=== PATIENT | male | born 1980 | race Caucasian/White ===

== ENCOUNTER 2024-08-11 14:13 | Inpatient (IN) ==
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
[2024-08-11 14:54] LABS: Appearance Urine Clear (Clear); Bilirubin Urine Negative (Negative); Blood Urine Negative (Negative); Color Urine Yellow; Glucose Urine UA Negative (Negative); Ketones Urine Negative (Negative); Leukocyte Esterase Urine Negative (Negative); Nitrite Urine Negative (Negative); Protein Urine Negative (Negative); Specific Gravity Urine 1.013 (1.000-1.030); Urobilinogen Urine Negative (Negative)
[2024-08-11] MEDS: LORazepam 1 MG TAB SL STA (15:18)
[2024-08-11] MEDS: NICOTINE 21 MG/24 HR TDSY TD STA (15:18)
[2024-08-11 15:21] LABS: Basophils # (auto) 0.03 K/uL (0.00-0.20); Basophils % (auto) 0.2 %; Eosinophils # (auto) 0.01 K/uL (0.00-0.50); Eosinophils % (auto) 0.1 %; Hematocrit (blood only) 42.3 % (42.0-52.0); Hemoglobin 14.8 g/dl (14.0-18.0); Immature Granulocytes # (auto) 0.04 K/uL (0.01-0.20); Immature Granulocytes % (auto) 0.3 %; Lymphocytes # (auto) 0.76 K/uL (1.20-3.40); Lymphocytes % (auto) 5.6 %; Mean Corpuscular Hemoglobin 30.6 pg (25.0-34.0); Mean Corpuscular Volume 87.6 fL (80.0-100.0); Mean Platelet Volume 9.5 fL (9.4-12.4); Monocytes # (auto) 0.77 K/uL (0.11-0.59); Monocytes % (auto) 5.7 %; Neutrophils # (auto) 11.92 K/uL (1.40-6.50); Neutrophils % (auto) 88.1 %; Platelet Count 220 K/uL (130-400); RDW Coefficient of Variation 12.1 % (11.5-14.5); RDW Standard Deviation 38.8 fL (36.4-46.3); Red Blood Count 4.83 M/uL (4.70-6.10); White Blood Count 13.53 K/ul (4.8-10.8)
[2024-08-11 15:25] LABS: Amphetamines+Metham, Urine Neg (Neg); Barbiturates, Urine Neg (Neg); Benzodiazepine, Urine Neg (Neg); Cocaine, Urine Neg (Neg); Fentanyl, Urine Neg (Neg); MDMA (Ecstacy), Urine Pos (Neg); Marijuana, Urine Neg (Neg); Methadone, Urine Neg (Neg); Opiate, Urine Neg (Neg); Phencyclidine, Urine Neg (Neg)
[2024-08-11 15:38] LABS: Alanine Aminotransferase 67 U/L (7-52); Albumin Globulin Ratio 1.3 (0.9-2); Albumin Level 4.7 gm/dl (3.4-5.0); Alkaline Phosphatase 62 U/L (34-104); Anion Gap 9 (3-11); Aspartate Aminotransferase 35 U/L (13-39); BUN Creatinine Ratio 15.7 (10-20); Bilirubin,Total 0.4 mg/dl (0.2-1.0); Blood Urea Nitrogen 17 mg/dl (6-23); Calcium 10.1 mg/dl (8.6-10.3); Carbon Dioxide 26 mmol/L (21-32); Chloride 101 mmol/L (98-107); Globulin 3.6 gm/dl (2.5-4.0); Glucose 94 mg/dl (70-99(Fasting)); Potassium 4.6 mmol/L (3.5-5.1); Sodium 136 mmol/L (136-145); Total Protein 8.3 gm/dl (6.0-8.3)
[2024-08-11 15:40] LABS: Acetaminophen < 3 ug/ml (10-30); Salicylate < 3.0 mg/dl (3.0-30)
[2024-08-11 15:51] LABS: Thyroid Stimulating Hormone 1.885 uIu/ml (0.300-4.500)
[2024-08-11] MEDS: BUPRENORPHINE/NALOXONE 2/0.5MG TAB SL STA (18:52)
--- NOTE | 2024-08-11 20:51 | Emergency Department Note ---
ED Visit Note The patient was taken in signout from Dr. Yee at the change of shift. Please see that note for details. The patient was pending voluntary mental health bed search for paranoia. Patient was medically cleared. Patient was accepted to [facility] .
[2024-08-11] MEDS ORDERED: MAGNESIUM HYDROXIDE SUSP 30 ML UDC PO PRN (22:21)
[2024-08-11] MEDS ORDERED: SODIUM CHLORIDE 0.65% NA SOLN 45 ML (OCEAN) PRN (22:21)
[2024-08-11] MEDS ORDERED: BISMUTH SUBSALICYLATE 262 MG CHEW PO PRN (22:21)
[2024-08-11] MEDS ORDERED: ALUMINUM/MAGNESIUM SUSP 30 ML UDC PO PRN (22:21)
[2024-08-11] MEDS ORDERED: hydrOXYzine HCl 25 MG TAB PO PRN (22:21)
[2024-08-11] MEDS ORDERED: ACETAMINOPHEN 325 MG TAB PO PRN (22:21)
[2024-08-11] MEDS: OLANZapine 10 MG TAB PO STA (22:47)
[2024-08-12] MEDS: hydrOXYzine HCl 25 MG TAB PO PRN (00:39)
[2024-08-12] MEDS: OLANZapine 5 MG TABLET PO PRN (00:39)
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
[2024-08-12] MEDS: NICOTINE 21 MG/24 HR TDSY TD SCH (10:00)
[2024-08-12] MEDS ORDERED: QUEtiapine FUMARATE 25 MG TABLET PO PRN (10:41)
[2024-08-12] MEDS: QUEtiapine FUMARATE 25 MG TABLET PO SCH (12:00)
[2024-08-12] MEDS: GABAPENTIN 300 MG CAP PO SCH (13:02)
[2024-08-12] MEDS: buprenorphine HCL 2 MG SUBL SL SCH ×2 (15:48→17:13)
[2024-08-12] MEDS: QUEtiapine FUMARATE 300 MG TABLET PO SCH (21:04)
[2024-08-12] MEDS: OLANZapine 10 MG TAB PO SCH (21:04)
[2024-08-12] MEDS: PRAZOSIN HCL 1 MG CAP PO SCH (21:04)
--- NOTE | 2024-08-13 09:01 | Psychiatric Progress Note ---
Date of Service August 13, 2024 Impression / Recommendations Impression BONILLA NORRIS is a 43-year-old man who has recently been transient, has a history of schizophrenia vs schizoaffective disorder, polysubstance use disorder on suboxone MAT, ADHD, PTSD, and was admitted on 08/11/24 20:56 on a 201 voluntary commitment for psychosis after eloping from local substance use treatment facility with psychosis and passive SI. Diagnostically consistent with unspecified psychosis with differential including schizophrenia vs schizoaffective disorder in addition to periods of exacerbation from substance use. Also meets criteria for polysubstance use disorder. Unfortunately he has very poor insight and judgement about his paranoid delusions which seems to be leading to a chronic pattern of constantly moving between hospitals and substance use treatment centers trying to find a place where he feels safe and not targeted. It seems that after a few days at most places his paranoia starts to increase and he then insists on moving to a new place. Given he reports medication adherence and multiple prior antipsychotic medication trials an MCCANN or clozapine trial would be ideal but he declines both of these options. And I agree with him that clozapine would be difficult to remain on until he is willing to at least settle in one place long enough to establish with an outpatient provider for blood monitoring. A: Significant lessening of paranoia, delusions and psychosis today which suggests likely significant contribution from substance use. More substance seeking behaviors seen today, he is quite focused on wanting to restart Wellbutrin and adjust timing of suboxone. Reviewed rationale for reducing dose of Suboxone for now with BID dosing and for discontinuation of Wellbutrin. Tolerating medications without side effects. Motivated for residential substance use treatment. MNPR-recent psychosis with paranoia Overall, I spent a total of 30 minutes on this case including meeting with the patient, reviewing the chart, nursing report, multidisciplinary team meeting, orders, and documentation. (1) Schizophrenia, paranoid, chronic with acute exacerbation: (2) Polysubstance use disorder: (3) Opioid use disorder: Plan 08/13/2024: -Adjust timing of suboxone to BID at 7-14 -Discontinue Seroquel qAM, continue HS and prn doses -Labwork ordered for tomorrow AM 08/12/2024: The patient was admitted to the [facility] ([facility] mental health unit) on q15 min checks (behavioral with suicide precautions) for safety. The patient will participate in group, recreational, and milieu therapies and will be offered additional individual and family sessions as clinically appropriate. -Medications: * Continue prior to admission Suboxone but reduce dose from 2mg TID to 2mg BID SL * Continue prazosin 1mg HS * Stop Wellbutrin XL * Continue gabapentin 300mg TID * Start Seroquel 50mg qAM and 300mg HS as well as 50mg TID prn for psychosis/paranoia -Labwork: * Fasting lipid panel * HbA1c * Vit D * Vit B12 Inventory Assets Strengths: good relationship with his mother, wants treatment Needs: safety and stabilization, medication adjustment, additional coping skills, increased outpatient services Suicide Risk Level Suicide Risk Level: Low (q15 min observation checks) (denying SI and psychosis improved, feels safe in the hospital and feels able to ask for support) Risk Factors Assessment Male: Yes : Yes Do You Have Access To A Gun?: No Health Problems: No Mental Health Diagnoses: Yes Substance Use Disorders: Yes Previous Attempt: Yes Family History of Suicide: No Previous Psychiatric Hospitalization: Yes Hopelessness: No Protective Factors Assessment Employed: No Stable Relationships: Yes (with his mother) Interval History Identifying Information BONILLA NORRIS is a 43-year-old man who has recently been transient, has a history of schizophrenia vs schizoaffective disorder, polysubstance use, ADHD, PTSD, and was admitted on 08/11/24 20:56 on a 201 voluntary commitment for psychosis after eloping from local substance use treatment facility with psychosis and passive SI. Chief Complaint "My joints are achy". Review of Systems Sleep Information Total Hours of Sleep: 6.30 Sleep Comments: Pt awake at 2300, ate and returned to bed and slept Meal Information Percent Meal Consumed - Breakfast: 100 Percent Meal Consumed - Lunch: 100 Percent Meal Consumed - Dinner: 100 Subjective Subjective Patient was seen & assessed and interval progress reviewed with treatment team nursing and social work. Out of his room in the evening, showered. Slept well overnight. Made some inappropriate comments about sperm being on the shower floor. Today denies symptoms of psychosis, significant lessening of paranoia. Participating well in unit activities. Focused on desire to restart Wellbutrin and adjust doing of suboxone. Reviewed that I am only comfortable with BID dosing and goal of utilizing slightly lower dose until he is further evaluated by substance use treatment facility which he is accepting of, he does request dose be given earlier in the day which is appropriate. He prefers not to have Seroquel in the morning, but liked having it at night. Reviewed rationale for not restarting Wellbutrin due to activation, potential to worsen psychosis and that this could be explored in the future. Offered option for Chantix which he declines. Denies SI. He's focused on goal of going to [facility] for substance use treatment. Physical Exam Psychiatric Orientation: alert and oriented x 3 Apperance: appropriately dressed and appropriately groomed Eye Contact: good eye contact Motor Behavior: no abnormal motor movements Speech: normal rate/rhythm/volume of speech Affect: + anxious affect Mood: + anxious mood Thought Process: goal directed thought process Thought Content: reality based without delusions Suicidal Thoughts: denies suicidal thoughts, denies suicidal plan and denies suicidal intent Homicidal Thoughts: denies homicidal thoughts and denies homicidal plan Hallucinations: no auditory hallucinations and no visual hallucinations Cognition: recent memory grossly intact, remote memory grossly intact, attention grossly intact and language grossly intact Insight: + limited insight Judgment: + fair judgement Vital Signs (Past 24 Hours) Last Vital Signs Temp 36.2 C L 08/13/24 06:41 Pulse 84 08/13/24 06:44 Resp 18 08/13/24 06:41 BP 91/60 L 08/13/24 06:44 Pulse Ox 96 08/13/24 06:41 O2 Del Method Room Air 08/13/24 06:41 Results & Data ([facility]) Current Inpatient Medications Current Inpatient Medications: Current Inpatient Medications Acetaminophen (Acetaminophen 325 Mg Tab) 650 mg PO Q4H PRN PRN Reason: Headache or Minor Fever Stop: 09/10/24 22:20 Al Hydrox/Mg Hydrox/Simethicone (Aluminum/Magnesium Susp 30 Ml Udc) 30 ml PO Q4H PRN PRN Reason: GI Upset Stop: 09/10/24 22:20 Bismuth Subsalicylate (Bismuth Subsalicylate 262 Mg Chew) 2 tab PO Q30M PRN PRN Reason: Loose Stool/Diarrhea Stop: 09/10/24 22:20 Buprenorphine HCl (Buprenorphine Hcl 2 Mg Subl) 2 mg SL BID [facility] Stop: 09/11/24 15:29 Last Admin: 08/12/24 21:04 Dose: 2 mg Gabapentin (Gabapentin 300 Mg Cap) 300 mg PO TID [facility] Stop: 09/11/24 13:59 Last Admin: 08/12/24 21:04 Dose: 300 mg Hydroxyzine HCl (Hydroxyzine Hcl 25 Mg Tab) 50 mg PO HSZ PRN PRN Reason: Insomnia Stop: 09/10/24 22:20 Last Admin: 08/12/24 02:55 Dose: 50 mg Hydroxyzine HCl (Hydroxyzine Hcl 25 Mg Tab) 25 mg PO Q4H PRN PRN Reason: Anxiety Stop: 09/10/24 22:20 Magnesium Hydroxide (Magnesium Hydroxide Susp 30 Ml Udc) 30 ml PO DAILY PRN PRN Reason: Constipation Stop: 09/10/24 22:20 Miscellaneous (Remove Nicoderm Patch) 1 each N/A DAILY@0859 [facility] Stop: 09/11/24 08:58 Last Admin: 08/12/24 10:00 Dose: Not Given Nicotine (Nicotine 21 Mg/24 Hr Tdsy) 1 patch TD QAM [facility] Stop: 09/11/24 08:59 Last Admin: 08/12/24 10:00 Dose: 1 patch Nicotine Polacrilex (Nicotine Polacrilex 2 Mg Gum) 2 piece MT PRN PRN PRN Reason: Nicotine Withdrawal Symptoms Stop: 09/10/24 22:20 Olanzapine (Olanzapine 5 Mg Tablet) 5 mg PO BID PRN PRN Reason: Agitation Stop: 09/11/24 08:59 Last Admin: 08/12/24 00:39 Dose: 5 mg Olanzapine (Olanzapine 10 Mg Tab) 10 mg PO HS [facility] Stop: 09/11/24 21:59 Last Admin: 08/12/24 21:04 Dose: 10 mg Prazosin HCl (Prazosin Hcl 1 Mg Cap) 1 mg PO HS [facility] Stop: 09/11/24 21:59 Last Admin: 08/12/24 21:04 Dose: 1 mg Quetiapine Fumarate (Quetiapine Fumarate 25 Mg Tablet) 50 mg PO QAM [facility] Stop: 09/11/24 10:44 Last Admin: 08/12/24 12:00 Dose: 50 mg Quetiapine Fumarate (Quetiapine Fumarate 300 Mg Tablet) 300 mg PO HS [facility] Stop: 09/11/24 21:59 Last Admin: 08/12/24 21:04 Dose: 300 mg Quetiapine Fumarate (Quetiapine Fumarate 25 Mg Tablet) 50 mg PO TID PRN PRN Reason: paranoia/psychosis Stop: 09/11/24 13:59 Sodium Chloride (Sodium Chloride 0.65% Na Soln 45 Ml ([place])) 1 - 2 sprays NA PRN PRN PRN Reason: Nasal Dryness/Congestion Stop: 09/10/24 22:20 Mental Health & Subst Abuse Tx Therapist Name of Therapist: none Carpenter Railcar Name of Carpenter Railcar: Venice Chavez @ [facility] Phone Number for Carpenter Railcar: [phone] Post Discharge Appointments Primary Care Physician Name Of Family Doctor/PCP: none Partial or Psych Rehab Name of Partial or Psych Rehab: [facility] Phone Number of Partial or Psych Rehab: [phone] Partial or Psych Rehab Appointment Comment: FAX [phone]
[2024-08-13] MEDS: NICOTINE POLACRILEX 2 MG GUM MT PRN (15:48)
[2024-08-13] MEDS: IBUPROFEN 600 MG TAB PO PRN (15:48)
[2024-08-13] MEDS: buprenorphine HCL 2 MG SUBL SL SCH (17:23)
--- NOTE | 2024-08-14 09:01 | Psychiatric Progress Note ---
Date of Service August 14, 2024 Impression / Recommendations Impression BONILLA NORRIS is a 43-year-old man who has recently been transient, has a history of schizophrenia vs schizoaffective disorder, polysubstance use disorder on suboxone MAT, ADHD, PTSD, and was admitted on 08/11/24 20:56 on a 201 voluntary commitment for psychosis after eloping from local substance use treatment facility with psychosis and passive SI. Diagnostically consistent with unspecified psychosis with differential including schizophrenia vs schizoaffective disorder in addition to periods of exacerbation from substance use. Also meets criteria for polysubstance use disorder. Unfortunately he has very poor insight and judgement about his paranoid delusions which seems to be leading to a chronic pattern of constantly moving between hospitals and substance use treatment centers trying to find a place where he feels safe and not targeted. It seems that after a few days at most places his paranoia starts to increase and he then insists on moving to a new place. Given he reports medication adherence and multiple prior antipsychotic medication trials an MCCANN or clozapine trial would be ideal but he declines both of these options. And I agree with him that clozapine would be difficult to remain on until he is willing to at least settle in one place long enough to establish with an outpatient provider for blood monitoring. A: No evidence for psychosis today, remains focused on adjusting medications which may be part of his substance use disorder but also focused on finding the right balance of medications to help his psychiatric symptoms. He continues to find Seroquel helpful. Will adjust Suboxone to once daily dosing, this is more in-line with standard prescribing recommendations for MAT. He requests and consents to starting escitalopram for history of depression, anxiety. Reviewed s luis antonio effects including but not limited to: GI, NOBLES, sexual side effects. Will restart prior to admission flomax for urinary retention. He's been accepted for residential substance use treatment at [facility], he needs to remain in the hospital until bed is available as he is at very high risk for relapse and worsening of acute psychosis outside of a secure/supervised setting. MNPR-recent psychosis with paranoia Overall, I spent a total of 35 minutes on this case including meeting with the patient, reviewing the chart, nursing report, multidisciplinary team meeting, orders, and documentation. (1) Schizophrenia, paranoid, chronic with acute exacerbation: (2) Polysubstance use disorder: (3) Opioid use disorder: Plan 08/14/2024: -Consolidate Suboxone to 4mg SL daily -Labwork reordered for tomorrow AM -Flomax started -Escitalopram 10mg daily starting tomorrow 08/13/2024: -Adjust timing of suboxone to BID at 7-14 -Discontinue Seroquel qAM, continue HS and prn doses -Labwork ordered for tomorrow AM 08/12/2024: The patient was admitted to the [facility] ([facility] health unit) on q15 min checks (behavioral with suicide precautions) for safety. The patient will participate in group, recreational, and milieu therapies and will be offered additional individual and family sessions as clinically appropriate. -Medications: * Continue prior to admission Suboxone but reduce dose from 2mg TID to 2mg BID SL * Continue prazosin 1mg HS * Stop Wellbutrin XL * Continue gabapentin 300mg TID * Start Seroquel 50mg qAM and 300mg HS as well as 50mg TID prn for psychosis/paranoia -Labwork: * Fasting lipid panel * HbA1c * Vit D * Vit B12 Inventory Assets Strengths: good relationship with his mother, wants treatment Needs: safety and stabilization, medication adjustment, additional coping skills, i ncreased outpatient services Suicide Risk Level Suicide Risk Level: Low (q15 min observation checks) (denying SI and psychosis improved, feels safe in the hospital and feels able to ask for support) Risk Factors Assessment Male: Yes : Yes Do You Have Access To A Gun?: No Health Problems: No Mental Health Diagnoses: Yes Substance Use Disorders: Yes Previous Attempt: Yes Family History of Suicide: No Previous Psychiatric Hospitalization: Yes Hopelessness: No Protective Factors Assessment Employed: No Stable Relationships: Yes (with his mother) Interval History Identifying Information BONILLA NORRIS is a 43-year-old man who has recently been transient, has a history of schizophrenia vs schizoaffective disorder, polysubstance use, ADHD, PTSD, and was admitted on 08/11/24 20:56 on a 201 voluntary commitment for psychosis after eloping from local substance use treatment facility with psychosis and passive SI. Chief Complaint "I woke up and couldn't remember where I was". Review of Systems Sleep Information Total Hours of Sleep: 4 Sleep Comments: HS medications and awake several times throughout the night. Meal Information Percent Meal Consumed - Breakfast: 100 Percent Meal Consumed - Lunch: 100 Percent Meal Consumed - Dinner: 100 Subjective Subjective Patient was seen & assessed and interval progress reviewed with treatment team nursing and social work. Eat overnight despite redirection so fasting labs rescheduled again. Awake overnight, only slept 4 hours. Increased paranoia about the lack of blinds in his room vs frustration with morning light so slept in the quiet room. Sometimes makes substance use references like asking for "a hit of that" when seeing a peer use saline nasal spray. Today reports feeling like he could sleep once in the quiet room, denies any paranoia related to this. Reviewed that he's been getting both Seroquel and olanzapine at which likely contributed to his sense of sedation this morning so he's agreeable with continuing with Seroquel monotherapy. He requests once daily dosing of Suboxone which I reviewed was reasonable and more in line with standard prescribing practices for opioid use disorder to help with his cravings. He would like to start an antidepressant and understands concerns related to Wellbutrin, he requests escitalopram. Also reports he's been having urinary retention in recent months, even prior to substance use relapse and was started on Flomax with good effect at [facility], requests this be restarted as he's noticed urinary difficulty feeling fully empted while here. Reviewed this can also be a side effect of antipsychotic medications. Physical Exam Psychiatric Orientation: alert and oriented x 3 Apperance: appropriately dressed and appropriately groomed Eye Contact: good eye contact Motor Behavior: no abnormal motor movements Speech: normal rate/rhythm/volume of speech Affect: euthymic affect Mood: + depressed mood; no anxious mood Thought Process: goal directed thought process Thought Content: reality based without delusions Suicidal Thoughts: denies suicidal thoughts, denies suicidal plan and denies suicidal intent Homicidal Thoughts: denies homicidal thoughts and denies homicidal plan Hallucinations: no auditory hallucinations and no visual hallucinations Cognition: recent memory grossly intact, remote memory grossly intact, attention grossly intact and language grossly intact Insight: + limited insight Judgment: + fair judgement Vital Signs (Past 24 Hours) Last Vital Signs Temp 36.2 C L 08/13/24 06:41 Pulse 98 H 08/14/24 06:41 Resp 16 08/14/24 06:41 BP 187/92 H 08/14/24 06:41 Pulse Ox 96 08/13/24 06:41 O2 Del Method Room Air 08/13/24 06:41 Results & Data ([facility]) Current Inpatient Medications Current Inpatient Medications: Current Inpatient Medications Acetaminophen (Acetaminophen 325 Mg Tab) 650 mg PO Q4H PRN PRN Reason: Headache or Minor Fever Stop: 09/10/24 22:20 Al Hydrox/Mg Hydrox/Simethicone (Aluminum/Magnesium Susp 30 Ml Udc) 30 ml PO Q4H PRN PRN Reason: GI Upset Stop: 09/10/24 22:20 Bismuth Subsalicylate (Bismuth Subsalicylate 262 Mg Chew) 2 tab PO Q30M PRN PRN Reason: Loose Stool/Diarrhea Stop: 09/10/24 22:20 Buprenorphine HCl (Buprenorphine Hcl 2 Mg Subl) 2 mg SL [id number] Stop: 09/12/24 16:44 Last Admin: 08/14/24 06:34 Dose: 2 mg Gabapentin (Gabapentin 300 Mg Cap) 300 mg PO TID [facility] Stop: 09/11/24 13:59 Last Admin: 08/13/24 20:59 Dose: 300 mg Hydroxyzine HCl (Hydroxyzine Hcl 25 Mg Tab) 50 mg PO HSZ PRN PRN Reason: Insomnia Stop: 09/10/24 22:20 Last Admin: 08/12/24 02:55 Dose: 50 mg Hydroxyzine HCl (Hydroxyzine Hcl 25 Mg Tab) 25 mg PO Q4H PRN PRN Reason: Anxiety Stop: 09/10/24 22:20 Ibuprofen (Ibuprofen 600 Mg Tab) 600 mg PO QID PRN PRN Reason: muscle/joint pain Stop: 09/12/24 16:59 Last Admin: 08/13/24 15:48 Dose: 600 mg Magnesium Hydroxide (Magnesium Hydroxide Susp 30 Ml Udc) 30 ml PO DAILY PRN PRN Reason: Constipation Stop: 09/10/24 22:20 Miscellaneous (Remove Nicoderm Patch) 1 each N/A DAILY@0859 [facility] Stop: 09/11/24 08:58 Last Admin: 08/13/24 09:45 Dose: 1 each Nicotine (Nicotine 21 Mg/24 Hr Tdsy) 1 patch TD QAM [facility] Stop: 09/11/24 08:59 Last Admin: 08/13/24 09:41 Dose: 1 patch Nicotine Polacrilex (Nicotine Polacrilex 2 Mg Gum) 2 piece MT PRN PRN PRN Reason: Nicotine Withdrawal Symptoms Stop: 09/10/24 22:20 Last Admin: 08/13/24 19:49 Dose: 2 piece Olanzapine (Olanzapine 5 Mg Tablet) 5 mg PO BID PRN PRN Reason: Agitation Stop: 09/11/24 08:59 Last Admin: 08/12/24 00:39 Dose: 5 mg Olanzapine (Olanzapine 10 Mg Tab) 10 mg PO HS [facility] Stop: 09/11/24 21:59 Last Admin: 08/13/24 20:59 Dose: 10 mg Prazosin HCl (Prazosin Hcl 1 Mg Cap) 1 mg PO HS [facility] Stop: 09/11/24 21:59 Last Admin: 08/13/24 20:59 Dose: 1 mg Quetiapine Fumarate (Quetiapine Fumarate 300 Mg Tablet) 300 mg PO HS [facility] Stop: 09/11/24 21:59 Last Admin: 08/13/24 20:59 Dose: 300 mg Quetiapine Fumarate (Quetiapine Fumarate 25 Mg Tablet) 50 mg PO TID PRN PRN Reason: paranoia/psychosis Stop: 09/11/24 13:59 Sodium Chloride (Sodium Chloride 0.65% Na Soln 45 Ml ([place])) 1 - 2 sprays NA PRN PRN PRN Reason: Nasal Dryness/Congestion Stop: 09/10/24 22:20 Mental Health & Subst Abuse Tx Therapist Name of Therapist: none Music Worker Name of Music Worker: Venice Chavez @ [facility] Phone Number for Music Worker: [phone] Post Discharge Appointments Primary Care Physician Name Of Family Doctor/PCP: none Partial or Psych Rehab Name of Partial or Psych Rehab: [facility] Phone Number of Partial or Psych Rehab: [phone] Partial or Psych Rehab Appointment Comment: FAX [phone]
[2024-08-15] MEDS: TAMSULOSIN HCL 0.4 MG CAP PO SCH (07:00)
[2024-08-15] MEDS: ESCITALOPRAM OXALATE 10 MG TAB PO SCH (07:00)
[2024-08-15] MEDS: buprenorphine HCL 2 MG SUBL SL SCH ×2 (07:01→16:00)
[2024-08-15 08:45] LABS: Estimated Average Glucose 108 mg/dl; Hemoglobin A1C 5.4 % (4.5-5.6)
[2024-08-15 08:53] LABS: Chol HDL Ratio 5.5 (0-5)
[2024-08-15] MEDS ORDERED: buprenorphine HCL 2 MG SUBL SL SCH (09:00)
[2024-08-15] MEDS: buPROPion XL 150 MG TABCR PO SCH (12:47)
--- NOTE | 2024-08-15 14:35 | Psychiatric Progress Note ---
Date of Service August 15, 2024 Impression / Recommendations Impression BONILLA NORRIS is a 43-year-old man who has recently been transient, has a history of schizophrenia vs schizoaffective disorder, polysubstance use disorder on suboxone MAT, ADHD, PTSD, and was admitted on 08/11/24 20:56 on a 201 voluntary commitment for psychosis after eloping from local substance use treatment facility with psychosis and passive SI. A: Concern patient has a delusional disorder as he presents non bizarre delusions which have been persistent for many years with limited improvement with treatment. Concern for an associated personality element due to extended [facility] sentence with hypervigilance. Concern for trauma related distressing dreams with anxiety however will not increase current prazosin dose due to patient's low blood pressure. Plan for discharge to rehab facility tomorrow AM. Labs reviewed: Triglycerides high at 277, Cholesterol of 204, Vit D Low at 23.7. MNPR-recent psychosis with paranoia Overall, I spent a total of 40 minutes on this case including meeting with the justina mosquera, reviewing the chart, nursing report, multidisciplinary team meeting, orders, and documentation. (1) Delusional disorder, persecutory type: (2) Polysubstance use disorder: (3) Opioid use disorder: Plan 08/15/2024: Restart Wellbutrin at 150 mg daily. Suboxone 3 mg twice daily. Vit D 5000 units daily. 08/14/2024: -Consolidate Suboxone to 4mg SL daily -Labwork reordered for tomorrow AM -Flomax started -Escitalopram 10mg daily starting tomorrow 08/13/2024: -Adjust timing of suboxone to BID at 7-14 -Discontinue Seroquel qAM, continue HS and prn doses -Labwork ordered for tomorrow AM 08/12/2024: The patient was admitted to the [facility] ([facility]) on q15 min checks (behavioral with suicide precautions) for safety. The patient will participate in group, recreational, and milieu therapies and will be offered additional individual and family sessions as clinically appropriate. -Medications: * Continue prior to admission Suboxone but reduce dose from 2mg TID to 2mg BID SL * Continue prazosin 1mg HS * Stop Wellbutrin XL * Continue gabapentin 300mg TID * Start Seroquel 50mg qAM and 300mg HS as well as 50mg TID prn for psychosis/paranoia -Labwork: * Fasting lipid panel * HbA1c * Vit D * Vit B12 Inventory Assets Strengths: good relationship with his mother, wants treatment Needs: safety and stabilization, medication adjustment, additional coping skills, increased outpatient services Suicide Risk Level Suicide Risk Level: Low (q15 min observation checks) (denying SI and psychosis improved, feels safe in the hospital and feels able to ask for support) Risk Factors Assessment Male: Yes : Yes Do You Have Access To A Gun?: No Health Problems: No Mental Health Diagnoses: Yes Substance Use Disorders: Yes Previous Attempt: Yes Family History of Suicide: No Previous Psychiatric Hospitalization: Yes Hopelessness: No Protective Factors Assessment Employed: No Stable Relationships: Yes (with his mother) Interval History Identifying Information BONILLA NORRIS is a 43-year-old man who has recently been transient, has a history of schizophrenia vs schizoaffective disorder, polysubstance use, ADHD, PTSD, and was admitted on 08/11/24 20:56 on a 201 voluntary commitment for psychosis after eloping from local substance use treatment facility with psychosis and passive SI. Chief Complaint "Situation rehab and fearful for my life" Review of Systems Sleep Information Total Hours of Sleep: 4 Sleep Comments: HS medications and awake several times throughout the night. Meal Information Percent Meal Consumed - Breakfast: 100 Percent Meal Consumed - Lunch: 100 Percent Meal Consumed - Dinner: 65 Subjective Subjective Patient was seen & assessed and interval progress reviewed with treatment team nursing and social work Patient is upset that medications were changed and requesting original doses of Suboxone and Wellbutrin. Says the doctor at the rehab facility will discontinue his medications without changes. Says he has been more labile and emotional without his antidepressant. Reports increased cravings for opiates. Reports 3 attempts on his life in the past. Says that he was suspicious at [facility] as he saw people going in and out of the bathroom. Says he was in [facility] for 10 years and went through a lot of trauma and is always in "fight or flight mode". Reports once jumping out of the truck because he thought he was being followed and sustained injuries to his back. Complains of nightmares 4-5 times a week and that sometimes wake him up scared and in sweats. Physical Exam Psychiatric Orientation: alert and oriented x 3 Apperance: appropriately dressed and appropriately groomed Eye Contact: good eye contact and + fair eye contact Motor Behavior: no abnormal motor movements Speech: normal rate/rhythm/volume of speech Affect: euthymic affect, + anxious affect and + irritable affect Mood: + depressed mood; no anxious mood Thought Process: goal directed thought process and + perseveration Thought Content: + paranoid and + delusions (non bizarre) Suicidal Thoughts: denies suicidal thoughts, denies suicidal plan and denies suicidal intent Homicidal Thoughts: denies homicidal thoughts and denies homicidal plan Hallucinations: no auditory hallucinations and no visual hallucinations Cognition: recent memory grossly intact, remote memory grossly intact, attention grossly intact and language grossly intact Insight: + limited insight Judgment: + limited judgement Vital Signs (Past 24 Hours) Last Vital Signs Temp 36.7 C 08/15/24 06:39 Pulse 102 H 08/15/24 06:40 Resp 18 08/15/24 06:39 BP 88/57 L 08/15/24 06:40 Pulse Ox 96 08/13/24 06:41 O2 Del Method Room Air 08/13/24 06:41 Results & Data ([facility]) Laboratory Results Laboratory Results - last 24 hr 08/15/24 08:11 Estimat Average Glucose 108 Hemoglobin A1c 5.4 Triglycerides 277 H Cholesterol 204 H LDL Cholesterol, Calc 112 VLDL Cholesterol, Calc 55 H HDL Cholesterol 37 Cholesterol/HDL Ratio 5.5 H Vitamin B12 339 25-OH Vitamin D Total 24.7 L Current Inpatient Medications Current Inpatient Medications: Current Inpatient Medications Acetaminophen (Acetaminophen 325 Mg Tab) 650 mg PO Q4H PRN PRN Reason: Headache or Minor Fever Stop: 09/10/24 22:20 Al Hydrox/Mg Hydrox/Simethicone (Aluminum/Magnesium Susp 30 Ml Udc) 30 ml PO Q4H PRN PRN Reason: GI Upset Stop: 09/10/24 22:20 Bismuth Subsalicylate (Bismuth Subsalicylate 262 Mg Chew) 2 tab PO Q30M PRN PRN Reason: Loose Stool/Diarrhea Stop: 09/10/24 22:20 Buprenorphine HCl (Buprenorphine Hcl 2 Mg Subl) 3 mg SL BID@0700,1600 [facility] Stop: 09/14/24 15:59 Bupropion HCl (Bupropion Xl 150 Mg Tabcr) [facility] Stop: 09/14/24 12:14 Last Admin: 08/15/24 12:47 Dose: 150 mg Escitalopram Oxalate (Escitalopram Oxalate 10 Mg Tab) 10 mg PO QAM [facility] Stop: 09/14/24 08:59 Last Admin: 08/15/24 07:00 Dose: 10 mg Gabapentin (Gabapentin 300 Mg Cap) 300 mg PO TID [facility] Stop: 09/11/24 13:59 Last Admin: 08/15/24 07:00 Dose: 300 mg Hydroxyzine HCl (Hydroxyzine Hcl 25 Mg Tab) 50 mg PO HSZ PRN PRN Reason: Insomnia Stop: 09/10/24 22:20 Last Admin: 08/12/24 02:55 Dose: 50 mg Hydroxyzine HCl (Hydroxyzine Hcl 25 Mg Tab) 25 mg PO Q4H PRN PRN Reason: Anxiety Stop: 09/10/24 22:20 Ibuprofen (Ibuprofen 600 Mg Tab) 600 mg PO QID PRN PRN Reason: muscle/joint pain Stop: 09/12/24 16:59 Last Admin: 08/14/24 09:52 Dose: 600 mg Magnesium Hydroxide (Magnesium Hydroxide Susp 30 Ml Udc) 30 ml PO DAILY PRN PRN Reason: Constipation Stop: 09/10/24 22:20 Miscellaneous (Remove Nicoderm Patch) 1 each N/A DAILY@0859 [facility] Stop: 09/11/24 08:58 Last Admin: 08/15/24 07:04 Dose: 1 each Nicotine (Nicotine 21 Mg/24 Hr Tdsy) 1 patch TD [facility] Stop: 09/11/24 08:59 Last Admin: 08/15/24 07:02 Dose: 1 patch Nicotine Polacrilex (Nicotine Polacrilex 2 Mg Gum) 2 piece MT PRN PRN PRN Reason: Nicotine Withdrawal Symptoms Stop: 09/10/24 22:20 Last Admin: 08/15/24 13:22 Dose: 2 piece Olanzapine (Olanzapine 5 Mg Tablet) 5 mg PO BID PRN PRN Reason: Agitation Stop: 09/11/24 08:59 Last Admin: 08/12/24 00:39 Dose: 5 mg Prazosin HCl (Prazosin Hcl 1 Mg Cap) 1 mg PO HS [facility] Stop: 09/11/24 21:59 Last Admin: 08/14/24 21:07 Dose: 1 mg Quetiapine Fumarate (Quetiapine Fumarate 300 Mg Tablet) 300 mg PO HS [facility] Stop: 09/11/24 21:59 Last Admin: 08/14/24 21:08 Dose: 300 mg Quetiapine Fumarate (Quetiapine Fumarate 25 Mg Tablet) 50 mg PO TID PRN PRN Reason: paranoia/psychosis Stop: 09/11/24 13:59 Sodium Chloride (Sodium Chloride 0.65% Na Soln 45 Ml (Jones)) 1 - 2 sprays NA PRN PRN PRN Reason: Nasal Dryness/Congestion Stop: 09/10/24 22:20 Tamsulosin HCl (Tamsulosin Hcl 0.4 Mg Cap) 0.4 mg PO QAM [facility] Stop: 09/14/24 08:59 Last Admin: 08/15/24 07:00 Dose: 0.4 mg Mental Health & Subst Abuse Tx Therapist Name of Therapist: none Bone Glue Maker Name of Bone Glue Maker: Venice Chavez @ [facility] Phone Number for Bone Glue Maker: [phone] Post Discharge Appointments Primary Care Physician Name Of Family Doctor/PCP: none Partial or Psych Rehab Name of Partial or Psych Rehab: [facility] Phone Number of Partial or Psych Rehab: [phone] Partial or Psych Rehab Appointment Comment: FAX [phone]
[2024-08-16] MEDS ORDERED: DESTROY THIS MEDICATION ONE (09:49)
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
[2024-08-16] MEDS: LORazepam 1 MG TAB PO STA (10:35)
[2024-08-18 10:12] LABS: MDA negative; MDEA negative; MDMA (Ecstasy) Urine, Confirm negative
== END 2024-08-16 10:50 | disposition alcohol treatment (31) | DRG 885 ==
LOC: ED 14:13 → 3S 20:53 → SUATTDRO 20:56 → 3S 20:56